=== PATIENT | male | born 1985 | race Caucasian/White ===

== ENCOUNTER 2017-10-01 20:56 | Emergency (ER) | payer MEDICAID ==
[~2017-10-01] VITALS: Ht 193 cm; Wt 117.3 kg
[2017-10-01 20:56] VITALS: BP 149/86
[2017-10-01] MEDS ORDERED: LIDOCAINE 1%, 20ML ONE (21:26)
[2017-10-01] MEDS ORDERED: L.E.T SOLUTION TP ONE ×2 (21:27→21:30)
[2017-10-01] MEDS ORDERED: MICROFIBRILLAR COLLAGEN 1 GM TP ONE ×2 (22:13→22:30)
== END 2017-10-01 22:48 | disposition home or self-care (01) ==
LOC: ED 22:03
DX: S61.112A Laceration without foreign body of left thumb with damage to nail, initial encounter (principal); G89.11 Acute pain due to trauma; W26.0XXA Contact with knife, initial encounter; Y93.G3 Activity, cooking and baking; Y92.090 Kitchen in other non-institutional residence as the place of occurrence of the external cause; Y99.8 Other external cause status
CPT/HCPCS: 12001; 99283

== ENCOUNTER 2019-12-27 10:37 | Emergency (ER) | payer MEDICAID, OTHER ==
[~2019-12-27] VITALS: Ht 193 cm; Wt 108.5 kg
--- NOTE | 2019-12-27 11:33 | NUR ---
DOCK HAND: PT AMBULATORY TO ROOM FROM LOBBY
[2019-12-27 11:45] LABS: MEAN CORPUSCULAR HEMOGLOBIN 30.3 pg (27.5-34.5); MEAN CORPUSCULAR HGB CONC 33.6 g/dL (33.2-36.2); MEAN CORPUSCULAR VOLUME 89.9 fL (81-97); MEAN PLATELET VOLUME 9.3 fL (7.4-10.4); PLATELET COUNT 263 x10^3/uL (130-400); RED BLOOD COUNT 5.79 x10^6/uL (4.38-5.82); RED CELL DISTRIBUTION WIDTH 13.6 % (9.4-14.8)
[2019-12-27] MEDS ORDERED: KETOROLAC 30 MG/1 ML ONE (11:45)
[2019-12-27] MEDS ORDERED: ONDANSETRON ODT 4 MG ONE (11:45)
[2019-12-27 11:53] LABS: ALBUMIN 4.4 g/dL (3.4-5.0); ANION GAP 11 mmol/L (5-15); CALCIUM 9.2 mg/dL (8.5-10.1); CHLORIDE 106 mmol/L (98-107); CREATININE 0.96 mg/dL (0.7-1.3)
--- NOTE | 2019-12-27 11:56 | NUR ---
Pt experiencing 9/10 B flank pain & urinary urgency since this morning. Labs have been drawn while in lobby after PIT seeing pt. Urine collected (bloody) and sent. Medicated as per emar for pain & nausea. Pt aware of need to stay NPO. Marine provided, call light within reach,aware of POC.
[2019-12-27] MEDS ORDERED: ONDANSETRON ODT 4 MG PO ONE (12:00)
[2019-12-27] MEDS ORDERED: KETOROLAC 30 MG/1 ML IM ONE (12:00)
[2019-12-27 12:10] LABS: MD YES
[2019-12-27 12:11] LABS: <PLATELET ESTIMATE> ADEQUATE; <PLT MORPHOLOGY> NORMAL PLT MORPH; <RBC MORPHOLOGY> NORMAL; BAND#(MANUAL) 0.44 x10^3/uL; BANDS%(MANUAL) 2 % (0-7); LYMPHS% (MANUAL) 5 % (22-44); MONOS#(MANUAL) 0.88 x10^3/uL (0.3-2.7); MONOS% (MANUAL) 4 % (2-9); SEG#(MANUAL) 19.49 x10^3/uL (1.8-6.8); SEGS% (MANUAL) 89 % (42-75)
[2019-12-27 12:24] LABS: MICROSCOPIC INDICATED
[2019-12-27 12:38] LABS: CULTURE INDICATED? YES
--- NOTE | 2019-12-27 12:53 | NUR ---
report received from JUDD Acosta. piv placed, blood cx drawn x 2. pt a&o, resps even and unlabored. pt rates back pain level 4/10 at this time. bp and spo2 monitors placed. pt to have ct and iv rocephin.
[2019-12-27] MEDS ORDERED: CEFTRIAXONE PMX 1GM/50ML 50 ML IVPB ONE (13:00)
--- NOTE | 2019-12-27 13:13 | NUR ---
pt in CT at this time.
[2019-12-27] MEDS ORDERED: CEFTRIAXONE PMX 1GM/50ML 50 ML ONE (13:21)
[2019-12-27] MEDS ORDERED: OMNIPAQUE 350 MG/ML, 100ML BOTTLE ONE (13:27)
--- NOTE | 2019-12-27 13:34 | NUR ---
PT BACK FROM CT. PIV BECAME DISPLACED UPON RETURN. PIV DC'D WITH TIP INTACT. NEW PIV PLACED TO LEFT FOREARM, 20G. ROCEPHIN GTT INITIATED PER EMAR. PT A&O, RESPS EVEN AND UNLABORED, NADN. AWAITING CT READ AND DISPO.
--- NOTE | 2019-12-27 14:58 | NUR ---
STRAIGHT CATH URINE OBTAINED AND SENT TO LAB. PT RESTING ON GURNEY, A&O, RESPS EVEN AND UNLABORED. PT STATES BACK PAIN TOLERABLE, DENIES ANY NEEDS AT THIS TIME. REPORT GIVEN TO JUDD GU WHO IS TO ASSUME CARE AT THIS TIME.
[2019-12-27 15:03] LABS: MICROSCOPIC INDICATED
[2019-12-27 15:11] LABS: CULTURE INDICATED? NO
--- NOTE | 2019-12-27 15:15 | NUR ---
Awaiting d/c order. Pt resting comfortably, no pain, no nausea.
--- NOTE | 2019-12-27 16:21 | NUR ---
Patient given discharge instructions and they have confirmed that they understand the instructions. Patient ambulatory with steady gait.
[2019-12-27 16:22] VITALS: BP 108/66
== END 2019-12-27 16:24 ==
LOC: ED 16:15
DX: N13.2 Hydronephrosis with renal and ureteral calculous obstruction (principal); R31.9 Hematuria, unspecified; D72.829 Elevated white blood cell count, unspecified; R19.7 Diarrhea, unspecified; R11.2 Nausea with vomiting, unspecified; M54.5 Low back pain; R10.2 Pelvic and perineal pain
CPT/HCPCS: 36415; 74177; 80048; 81001; 82040; 83605; 84145; 85025; 87040; 87086; 96365; 96372; 99285; J0696; J1885; Q0162; Q9967